=== PATIENT | female | born 1965 | race Caucasian/White ===

== ENCOUNTER → 2017-01-05 | Outpatient (CLI) | payer OTHER ==
[~2017-01-05] MED LIST: ERYTHROMYCI1
--- NOTE | 2017-01-09 09:35 | DEXA ---
AP SPINE L1 - L4 1.354 1.3 1.6 LT FEMUR TOTAL 1.168 1.3 1.7 RT FEMUR TOTAL 1.177 1.3 1.8 TOTAL BODY TOTAL OTHER DUAL FEMUR FRAX* ASSESSMENT Risk factors: History of fracture as adult. 10 year probability of fracture Major osteoporotic fracture 5.4 % Hip fracture 0.0 % COMMENTS: Normal bone densitometry of the spine and hips. The density of the spine has increased 1.3% since 03/22/2011. The density of the left hip has increased 0.8% since 03/22/2011. The density of the right hip has increased 1.9% since 03/22/2011. The increased density of the spine does not represent a significant change. The increased density of the left hip does not represent a significant change. The increased density of the right hip does not represent a significant change. FOLLOW-UP: Recommendation for the next bone density exam: 5 years. MARY ANN
== END ==
LOC: M WHC 12:56
PROVIDERS: ATTEND Family Medicine
DX: Z78.0 Asymptomatic menopausal state (principal); Z87.310 Personal history of (healed) osteoporosis fracture

== ENCOUNTER → 2017-01-29 | Outpatient (CLI) | payer OTHER ==
--- NOTE | 2017-01-31 08:06 | REPMRS ---
Patient History The patient states she has not had a clinical breast exam in over a year. Patient is postmenopausal and has history of breast cancer at age 42. Family history of breast cancer in mother at age 50 or over. Reconstructions, 2008. Reduction of the right breast, 2008. Mastectomy of the left breast, 2007. Digital Woman Screen Mammo: January 29, 2017 - Exam #: [id number] Bilateral CC and MLO view(s) were taken. Technologist: Emily Patel, Technologist Prior study comparison: October 25, 2011, right breast diagnostic unilateral mammo, performed at [facility]. FINDINGS: There are scattered fibroglandular densities. There has been no change in the appearance of the right breast parenchyma in the interval since the prior examination. No mass, architectural distortion, or microcalcific cluster has developed. No suspicious finding. ASSESSMENT: BI-RADS/ACR category 2 mammogram. Benign finding(s). Recommendation Routine screening mammogram in 1 year. This mammogram was interpreted with the aid of an FDA-approved computer-aided dectection system. Electronically Signed By: Jason Mcknight MD 01/31/17 0806
== END ==
LOC: M WHC 09:02
PROVIDERS: ATTEND Family Medicine
DX: Z12.31 Encounter for screening mammogram for malignant neoplasm of breast (principal)

== ENCOUNTER → 2017-05-17 | Outpatient (REF) | payer OTHER | LOC: M SFHCLERA 09:44 | PROVIDERS: ATTEND Physician Assistant | DX: J02.9 Acute pharyngitis, unspecified (principal) ==

== ENCOUNTER → 2018-06-24 | Outpatient (CLI) | payer OTHER | LOC: M WHC 13:58 | DX: Z12.31 Encounter for screening mammogram for malignant neoplasm of breast (principal); Z85.3 Personal history of malignant neoplasm of breast; R92.2 Inconclusive mammogram | CPT/HCPCS: 77067 ==

== ENCOUNTER → 2018-06-28 | Outpatient (CLI) | payer OTHER | LOC: M RAD 13:50 | DX: R92.2 Inconclusive mammogram (principal); R92.8 Other abnormal and inconclusive findings on diagnostic imaging of breast; Z85.3 Personal history of malignant neoplasm of breast | CPT/HCPCS: 77065 ==

== ENCOUNTER → 2018-09-12 | Outpatient (CLI) | payer OTHER ==
[~2018-09-12] MED LIST changes: +AUGM875T28 PO; +CLAR10CA3 PO; +KLOR20TA42 PO; +LEVO50TA5 PO; +LIPI20TA PO; +LOSA100T50 PO; +OMEP10CASR PO; +ONDA8TAB7 PO; +PROC10TA4 PO; +VENL37.598 PO
--- NOTE | 2018-09-13 06:58 | ECHO ---
DATE OF PROCEDURE: 09/12/2018 DATE OF : 1965 AGE: 52 GENDER: Female HEIGHT: 67 inches WEIGHT: 212 pounds BODY SURFACE AREA: 2.07 meters squared OUTPATIENT REFERRING PHYSICIAN: Dr. Jeff Yadav INDICATION: Potentially cardiotoxic chemotherapy. MEASUREMENTS: 2-D Measurements: RV: 3.0 cm LV: 4.6 cm Septum: 1.0 cm Posterior wall: 1.0 cm Aortic root: 3.4 cm LA: 3.2 cranial nerve LVEF: 60% Doppler Measurements: AV: 1.05 m/s LVOT: 0.89 m/s LVOT diameter: 2.0 cm MV - E 50 A 58 EA ratio 0.9 Early mitral deceleration time: 232 ms E prime: 7.6 A prime: 11 E/E prime ratio: 6.6 PV: 0.8 m/s Pulmonary artery acceleration time: 140 ms PASP: 20 mmHg IVC: 1.3 cm COMMENTS: Normal sinus rhythm with incomplete right bundle branch block. Technically challenging study in light of the patient's body habitus, but diagnostically useful information was still obtained. M-mode and two-dimensional echocardiography was performed with pulsed, continuous wave, color flow and tissue Doppler studies. Normal left ventricular size, wall thickness and wall motion. Normal left atrial size with Doppler evidence of an impairment of LV diastolic relaxation. Currently normal estimated mean left atrial pressure. Normal right heart chamber sizes and motion and estimated pulmonary arterial pressure. Normal appearing and functioning valvular structures. Normal aortic root size. No apparent intracardiac mass or pericardial effusion. MTDD
== END ==
LOC: M CARPUL 09:18
PROVIDERS: ATTEND Internal Medicine Hematology & Oncology
DX: I45.10 Unspecified right bundle-branch block (principal); Z79.811 Long term (current) use of aromatase inhibitors; R93.9 Diagnostic imaging inconclusive due to excess body fat of patient

== ENCOUNTER → 2018-09-17 | Outpatient (CLI) | payer OTHER ==
[2018-09-17 14:42] LABS: BASO # 0.1 10^3/uL (0.0-0.2); BASO % 1.4 % (0.0-1.0); EOS # 0.3 10^3/uL (0.0-0.50); EOS % 5.2 % (0.0-3.0); HEMATOCRIT 39.3 % (36.0-47.0); HEMOGLOBIN 12.7 g/dl (12.0-15.5); LYMPH % 41.2 % (24.0-44.0); MEAN CORPUSCULAR HEMOGLOBIN 32.2 pg (27.0-33.0); MEAN CORPUSCULAR HGB CONC 32.3 g/dl (32.0-36.5); MEAN CORPUSCULAR VOLUME 99.5 fl (80.0-96.0); MONO # 0.4 10^3/uL (0.0-0.8); MONO % 7.2 % (0.0-5.0); NEUTROPHILS # 2.2 10^3/uL (1.8-7.7); NEUTROPHILS % 44.6 % (36.0-66.0); PLATELET COUNT, AUTOMATED 241 10^3/uL (150-450); RED BLOOD COUNT 3.95 10^6/uL (4.00-5.40); WHITE BLOOD COUNT 4.8 10^3/uL (4.0-10.0)
[2018-09-17 14:45] LABS: BLOOD UREA NITROGEN 15 MG/DL (7-18); CALCIUM LEVEL 8.6 MG/DL (8.5-10.1); CARBON DIOXIDE LEVEL 29 MEQ/L (21-32); CHLORIDE LEVEL 109 MEQ/L (98-107); CREATININE FOR GFR 0.79 MG/DL (0.55-1.30); GLOMERULAR FILTRATION RATE > 60.0 (>51); GLUCOSE, FASTING 104 MG/DL (70-100); POTASSIUM SERUM 4.4 MEQ/L (3.5-5.1); SODIUM LEVEL 143 MEQ/L (136-145)
[2018-09-17 14:57] LABS: INR 0.92; PROTHROMBIN TIME 12.5 SECONDS (12.1-14.4)
--- NOTE | 2018-09-18 03:57 | REP ---
Clinical: Preoperative assessment. Technique: PA and lateral. Comparison: None. Findings: Evaluation is limited by poor inspiratory effort. Mediastinum and cardiac silhouette are within normal limits. Airway is patent and midline. Lung andersen are relatively clear and without focal consolidation, effusion, or pneumothorax. Foreign body overlying the right breast consistent with prior reconstructive surgery. Impression: 1. No acute mediastinal or pleuroparenchymal process appreciated. Electronically Signed by Jayson Mejia MD 09/18/2018 03:49 A
== END ==
LOC: M SMT 11:13
PROVIDERS: ATTEND Thoracic Surgery (Cardiothoracic Vascular Surgery)
DX: C50.912 Malignant neoplasm of unspecified site of left female breast (principal); Z01.818 Encounter for other preprocedural examination

== ENCOUNTER 2018-09-18 11:08 | Day surgery (SDC) | payer OTHER ==
[~2018-09-18] VITALS: Ht 170.2 cm; Wt 100.2 kg
[~2018-09-18 11:08] MED LIST changes: +BUPIVACAINE LIPOSOME/PF 1.3% 20ML VIAL (13.3MG/ML)(EXPAREL)(C9290 PER1MG) As Ordered ONE; +HEPARIN SOD (PORCINE) 5000 UNITS/ML VIAL As Ordered ONE; -KLOR20TA42 PO; +LIDOCAINE 1% MDV 20ML VIAL As Ordered ONE; -OMEP10CASR PO; -ONDA8TAB7 PO; -PROC10TA4 PO
[2018-09-18] MEDS ORDERED: LR 1,000 ML IV SCH (11:15)
[2018-09-18] MEDS ORDERED: MUPIROCIN 2% OINT 22 GM TUBE TOP ONE (11:30)
[2018-09-18] MEDS ORDERED: ONDANSETRON 4MG/2ML VIAL (J2405) As Ordered ONE (13:35)
[2018-09-18] MEDS ORDERED: fentaNYL 100 MCG/2 ML INJECTION (J3010) As Ordered ONE (13:35)
[2018-09-18] MEDS ORDERED: KETAMINE HCL 200 MG/20 ML VIAL As Ordered ONE (13:35)
[2018-09-18] MEDS ORDERED: MIDAZOLAM INJ 2 MG/2 ML VIAL (J2250) As Ordered ONE (13:35)
[2018-09-18] MEDS ORDERED: PROPOFOL 200 MG/20 ML VIAL As Ordered ONE (13:35)
--- NOTE | 2018-09-18 13:47 | REP ---
FLUOROSCOPIC GUIDANCE FOR [id number] PLACEMENT: 09/18/2018. Clinical history: Breast carcinoma. Findings: Two images from C-arm fluoroscopy provided to Dr. Rivera of the thoracic surgery division for left-sided subclavian Vybasd-K-Uhvv insertion. These images show the subclavian catheter with tip in SVC and its port in the left upper chest. Fluoroscopy time: 17 seconds. Electronically Signed by Jacek Rehman MD 09/18/2018 01:38 P
[2018-09-18 14:35] VITALS: BP 144/78
--- NOTE | 2018-09-18 19:32 | REP ---
AP PORTABLE SEMI-ERECT CHEST: 09/18/2018. Clinical history: Postop Vvgcfi-T-Shtn insertion. Comparison: Chest x-ray and 09/17/2018. Findings: There is a new left subclavian Nsxypa-T-Ugsr catheter with tip in the SVC above the right atrium. No evidence of pneumothorax or effusion. Epicardial fat pad or some subsegmental atelectatic change in the left CP angle noted. The right lung is clear. There is a tissue expanded overlying the right chest wall. No other finding. Impression: 1. Status post Rjkebd-R-Vbqm placement via the left subclavian route with tip in the SVC. No pneumothorax or definite infiltrate. Electronically Signed by Jacek Rehman MD 09/18/2018 09:32 P
--- NOTE | 2018-09-19 09:12 | RO ---
DATE OF PROCEDURE: 09/18/2018 PREPROCEDURE DIAGNOSIS: Metastatic breast cancer. POSTPROCEDURE DIAGNOSIS: Metastatic breast cancer. PROCEDURE: Insertion of a left subclavian vein PowerPort for chemotherapy with fluoroscopic control. SURGEON: Stephane Rivera MD LINOTYPE MACHINIST APPRENTICE: ANESTHESIA: FINDINGS: All contours were smooth at the end of the procedure. The catheter was placed at the junction of the superior vena cava (SVC) in the right atrium. All positions were confirmed by fluoroscopic control. DESCRIPTION OF PROCEDURE: Under satisfactory monitored anesthesia care (MAC) anesthesia, patient was prepped and draped in usual sterile fashion. The subclavian vein was found on the first pass on the left side. A wire was placed and its position confirmed with fluoroscopy. An incision approximately 2 cm below the subclavian fossa was made for the port. It was carried down into the subcutaneous tissue and a subcutaneous pocket was created by use of electrocautery and blunt dissection. Wire tract was incised and dilated. A Peel-Away introducer was placed and the catheter was placed low numbers down into the right atrium. A tunnel was created between the wire site and the port site. The catheter was pulled through into the port site and then positioned by fluoroscopic control at the junction of the right atrium of the superior vena cava. The catheter was cut to appropriate size, collar placed and Infusaport connected to the catheter. The port was secured to the chest wall with two #2-0 silk sutures. Final x-rays showed the port to be in good place with all contours smooth. The port was flushed with heparinized saline and then a final flush of heparin 100 units/mL of heparin. The subcutaneous tissue was closed with running #3-0 Vicryl suture and the skin was closed with running #4-0 Monocryl subcuticular suture. The patient tolerated procedure well and left the operating room in satisfactory condition for the recovery room.
[2018-09-20] MEDS ORDERED: ONDA8TAB7 PO (13:41)
[2018-09-20] MEDS ORDERED: PROC10TA4 PO (13:41)
[2018-09-23] MEDS ORDERED: OMEP10CASR PO (08:28)
[2018-09-23] MEDS ORDERED: KLOR20TA42 PO (10:26)
== END 2018-09-18 14:43 | disposition home or self-care (01) ==
LOC: M SDC 11:08
PROVIDERS: ATTEND Thoracic Surgery (Cardiothoracic Vascular Surgery)
DX: C50.912 Malignant neoplasm of unspecified site of left female breast (principal); C50.911 Malignant neoplasm of unspecified site of right female breast; I10 Essential (primary) hypertension; E03.9 Hypothyroidism, unspecified; E78.00 Pure hypercholesterolemia, unspecified; F41.9 Anxiety disorder, unspecified; F32.9 Major depressive disorder, single episode, unspecified; Z88.5 Allergy status to narcotic agent; Z88.6 Allergy status to analgesic agent; Z88.8 Allergy status to other drugs, medicaments and biological substances; Z79.899 Other long term (current) drug therapy; Z90.710 Acquired absence of both cervix and uterus; Z87.891 Personal history of nicotine dependence
CPT/HCPCS: 36561; 71045; 76000; C1788; C9290; J0690; J2250; J2405; J3010

== ENCOUNTER → 2018-09-26 | Outpatient (CLI) | payer OTHER ==
[~2018-09-26] MED LIST changes: -BUPIVACAINE LIPOSOME/PF 1.3% 20ML VIAL (13.3MG/ML)(EXPAREL)(C9290 PER1MG) As Ordered ONE; -HEPARIN SOD (PORCINE) 5000 UNITS/ML VIAL As Ordered ONE; +KLOR20TA42 PO; -LIDOCAINE 1% MDV 20ML VIAL As Ordered ONE; +OMEP10CASR PO; +ONDA8TAB7 PO; +PROC10TA4 PO; +VITATAB11 PO
--- NOTE | 2018-09-26 08:38 | REP ---
Chest x-ray: Two views. History: Malignant neoplasm of the breast. Comparison study: September 18, 2018. Findings: An Zyrvpx-N-Ddng catheter is noted in place via the left side. There is a tissue auto body mechanic device visible in the right breast. There is plate-like atelectasis in the left base which has improved from the recent prior chest x-ray. Lung andersen are otherwise clear. The pleural angles are sharp. Heart is not enlarged. Impression: Improving atelectatic changes left base. Wxwiov-V-Vnuo catheter and right breast tissue auto body mechanic noted. Otherwise no acute disease. Electronically Signed by Khari Mcknight MD 09/26/2018 08:31 A
== END ==
LOC: M SMT 08:06
PROVIDERS: ATTEND Thoracic Surgery (Cardiothoracic Vascular Surgery)
DX: C50.912 Malignant neoplasm of unspecified site of left female breast (principal); J98.11 Atelectasis

== ENCOUNTER → 2018-12-12 | Outpatient (CLI) | payer OTHER ==
[~2018-12-12] MED LIST changes: +ATOR40TA75 PO; +KEFL500C17 PO; +KP BTAB PO; +LOSA100T5 PO; +POTA1TAB14 PO
--- NOTE | 2018-12-12 18:47 | ECHO ---
DATE OF PROCEDURE: 12/12/2018 REFERRING PROVIDER: Ashley Aly INDICATION: Right breast cancer. Height 168 cm, weight 91 kg. DIMENSIONS: IVS: 1.0 LV: 4.9 LVPW: 1.1 LA: 3.3 Aorta: 3.2 IVC: 1.3 Mitral E wave velocity: 74 A wave: 85 E prime septal: 6.9 E prime lateral: 8.1 FINDINGS: The study is of fair technical quality with difficult visualization. Left ventricle is normal size and has normal systolic function. Based on limited views, I estimate ejection fraction (EF) around 60%, computer-calculated left ventricular ejection fraction (LVEF) was 55%. Right ventricle appears normal size and systolic function as well. Both atria appear normal. All four cardiac valves were reasonably well seen and appear normal. No pericardial effusion is noted. Inferior vena cava is normal size and appropriately collapses with respiration indicative of normal central venous pressure. Aortic root, aortic arch and abdominal aorta all appear normal. Doppler interrogation reveals normal function of aortic valve without stenosis or insufficiency. Same applies for mitral, tricuspid, and pulmonic valves. Mitral inflow pattern and tissue Doppler imaging of mitral annulus revealed grade 1 diastolic dysfunction. CONCLUSIONS: 1. Study is of fair technical quality. 2. Normal left ventricular (LV) size and systolic function, grade 1 diastolic dysfunction. 3. No significant valvular disease. 4. Normal central venous pressure. 5. Unable to estimate pulmonary artery pressure. COMMENT: Subacute bacterial endocarditis (SBE) prophylaxis is not recommended. MTDD
== END ==
LOC: M CARPUL 08:27
PROVIDERS: ATTEND Nurse Practitioner Family
DX: C50.911 Malignant neoplasm of unspecified site of right female breast (principal)

== ENCOUNTER → 2019-03-11 | Outpatient (CLI) | payer OTHER ==
--- NOTE | 2019-03-12 08:44 | REP ---
REASON: Assessment prior to chemotherapy. After the intravenous administration of 23.7 mCi of technetium-99m UltraTag a MUGA scan. The ejection fraction is calculated at 55.8%. No abnormal left ventricular wall motion was identified. IMPRESSION: Normal exam. Electronically Signed by Nael Hansen DO 03/12/2019 09:47 A
== END ==
LOC: M RAD 12:55
PROVIDERS: ATTEND Internal Medicine
DX: C50.411 Malignant neoplasm of upper-outer quadrant of right female breast (principal)

== ENCOUNTER → 2019-06-10 | Outpatient (CLI) | payer OTHER ==
--- NOTE | 2019-06-10 10:39 | REP ---
Two-view chest: 06/10/2019. Indication: Cough. Comparison: 09/26/2018. Findings: The lungs are clear. There is no pleural effusion or pneumothorax. Left-sided Port-A-Cath is noted and similarly positioned with the tip at the cavoatrial junction. The cardiac silhouette is not significantly enlarged. Impression: No acute cardiopulmonary process. Electronically Signed by Adi Jara DO 06/10/2019 10:31 A
== END ==
LOC: M LRY 10:05
PROVIDERS: ATTEND Physician Assistant
DX: R05 Cough (principal)

== ENCOUNTER → 2019-07-22 | Outpatient (CLI) | payer OTHER ==
--- NOTE | 2019-07-22 14:13 | ECHO ---
DATE OF PROCEDURE: 07/22/2019 REFERRING PHYSICIAN: Dr. Jimenez INDICATION: Chemotherapy. HEIGHT: 170 cm. WEIGHT: 87 kg. DIMENSIONS: IVS 1.4 LV 4.1 LVPW 1.2 LA 2.7 Aorta 3.5 IVC 0.9 Mitral E wave velocity 40, A wave 73 E prime septal 4.7 E prime lateral 7.6 FINDINGS: The study is of fair technical quality. The patient is in sinus rhythm. Left ventricle is normal size and systolic function. Mild left ventricular hypertrophy is noted. Calculated LVEF was 62%. Right ventricle appears normal. Both atria appear normal. Aortic, mitral, tricuspid and pulmonic valves were all reasonably well seen and appear normal. No pericardial effusion is noted. Inferior vena cava is relatively small indicative of normal central venous pressure. Aortic root is normal. Aortic arch also appears normal. Abdominal aorta was not well seen. Doppler interrogation reveals no significant valvular disease. All four cardiac valves are functionally competent. Mitral inflow pattern and tissue Doppler imaging of mitral annulus reveal grade 1 diastolic dysfunction. CONCLUSION: 1. Study is of fair technical quality. 2. Normal LV size with mild LVH and normal LV systolic function. Calculated LVEF 62%. 3. No significant valvular disease. 4. Likely normal central venous pressure. Unable to calculate pulmonary artery pressure. COMMENTS: SBE prophylaxis is not recommended. MTDD
== END ==
LOC: M CARPUL 08:25
PROVIDERS: ATTEND Internal Medicine Hematology & Oncology
DX: C50.911 Malignant neoplasm of unspecified site of right female breast (principal); Z92.21 Personal history of antineoplastic chemotherapy

== ENCOUNTER → 2020-05-13 | Outpatient (CLI) | payer OTHER ==
[~2020-05-13] MED LIST changes: +D31000TA2 PO; +ONDA8TAB10 PO; -ONDA8TAB7 PO
--- NOTE | 2020-05-14 08:19 | ECHO ---
DATE OF PROCEDURE: 05/13/2020 Age: 54 Gender: Female Height: 67 inches Weight: 183 pounds REFERRING PHYSICIAN: Emre Guan MD INDICATION: Chemotherapy drugs that may affect the heart. MEASUREMENTS: 2D Measurements: Aortic root 3.5 cm Left atrium 2.3 cm Intraventricular septum 1.06 cm Posterior wall 1.09 cm Left ventricle diastole 3.4 cm Inferior vena cava 0.9 cm (more than 50% respiratory variation) Doppler Measurements: No aortic stenosis No aortic regurgitation Aortic valve velocity 91.1 cm/s LVOT velocity 64.7 cm/s No mitral stenosis No mitral regurgitation Mitral E velocity 53.8 cm/s Mitral A velocity 70.1 cm/s Mitral deceleration time 137 msec No tricuspid regurgitation No pulmonic regurgitation Pulmonary artery systolic pressure 21 mmHg MITRAL ANNULAR TISSUE DOPPLER E prime septal 10.1 cm/s, E prime lateral 12.1 cm/s DESCRIPTION: Rhythm was sinus. Image quality was fair. No pericardial effusion. This was a 2D, M-mode, color flow Doppler, and pulsed wave Doppler examination including mitral annular tissue Doppler. CONCLUSIONS: 1. Normal echocardiogram Doppler. 2. Normal left ventricle internal dimensions and wall thickness. Normal regional left ventricular (LV) wall motion and wall thickening. Normal left ventricular (LV) systolic function. Left ventricular ejection fraction (LVEF) 70% by visual estimate. Normal left ventricular (LV) diastolic function at observed heart rate. 3. No pericardial effusion. MTDD
== END ==
LOC: M CARPUL 09:18
PROVIDERS: ATTEND Internal Medicine Hematology & Oncology
DX: Z51.81 Encounter for therapeutic drug level monitoring (principal); Z79.899 Other long term (current) drug therapy; C50.911 Malignant neoplasm of unspecified site of right female breast

== ENCOUNTER → 2020-11-11 | Outpatient (CLI) | payer OTHER ==
--- NOTE | 2020-11-12 10:18 | ECHO ---
DATE OF PROCEDURE: 11/11/2020 Age: 54 Gender: Female Height: 170 cm Weight: 88 kg REFERRING PHYSICIAN: Emre Guan MD. INDICATION: Chemotherapy. MEASUREMENTS: IVS 1.90 cm LV 4.8 cm LVPW 1.0 cm LA 2.8 cm Aorta 3.3 cm IVC 1.3 cm Mitral E wave velocity 54 cm/s Mitral A wave 67 cm/s E prime septal 7.8 cm/s E prime lateral 8.6 cm/s FINDINGS: This study is of fair technical quality. Underlying sinus rhythm. Left ventricle is normal size and has normal systolic function. I estimate EF approximately 70%. No segmental wall motion abnormalities are appreciated. Right ventricle was relatively poorly seen, but appears grossly normal. Both atria appear normal. Aortic valve is tricuspid. It has normal mobility. Also mitral, tricuspid, and pulmonic valves appear normal based on fairly acceptable views. No pericardial effusion is noted. Inferior vena cava was not well seen. Aortic root, aortic arch, and abdominal aorta were not well seen. Doppler interrogation of the aortic valve revealed no significant stenosis or insufficiency. The same applies for the remaining three valves. Mitral inflow pattern and tissue Doppler imaging of the mitral annulus revealed grade 1 diastolic dysfunction. CONCLUSIONS: 1. Study is of fair technical quality, underlying sinus rhythm. 2. Normal LV size and systolic function, grade 1 diastolic dysfunction. 3. No significant valvular disease. 4. Normal central venous pressure, but unable to reliably estimate pulmonary artery pressure. MTDD
== END ==
LOC: M CARPUL 09:36
PROVIDERS: ATTEND Internal Medicine Hematology & Oncology
DX: C50.919 Malignant neoplasm of unspecified site of unspecified female breast (principal)

== ENCOUNTER → 2021-08-05 | Outpatient (CLI) | payer OTHER ==
[~2021-08-05] MED LIST changes: -KLOR20TA42 PO; +LOSA100T45 PO; -LOSA100T50 PO; +ONDA-84 PO; -ONDA8TAB10 PO; +POTA-141 PO; -PROC10TA4 PO; +PROC10TA5 PO
== END ==
LOC: M CARPUL 14:30
PROVIDERS: ATTEND Internal Medicine Hematology & Oncology
DX: C50.911 Malignant neoplasm of unspecified site of right female breast (principal)

== ENCOUNTER → 2022-01-09 | Outpatient (CLI) | payer OTHER ==
[~2022-01-09] MED LIST changes: -D31000TA2 PO; +VITA100093 PO
== END ==
LOC: M LABSMTC 10:18
PROVIDERS: ATTEND Anesthesiology
DX: Z01.812 Encounter for preprocedural laboratory examination (principal); Z20.822 Contact with and (suspected) exposure to COVID-19

== ENCOUNTER 2022-01-12 08:02 | Day surgery (SDC) | payer OTHER ==
[~2022-01-12] VITALS: Ht 170.2 cm; Wt 85.3 kg
[~2022-01-12 08:02] MED LIST changes: +LIDOCAINE 2% JELLY 5ML TUBE As Ordered ONE; +NS 1,000 ML IV ONE; +propofoL 200 MG/20 ML VIAL As Ordered ONE
[2022-01-12] MEDS ORDERED: propofoL 200 MG/20 ML VIAL As Ordered ONE (09:25)
[2022-01-12] MEDS ORDERED: LIDOCAINE 2% 100MG/5ML SDV (FOR ANES.) As Ordered ONE (09:25)
[2022-01-12 09:50] VITALS: BP 99/65
== END 2022-01-12 10:21 | disposition home or self-care (01) ==
LOC: M OPP 08:02
PROVIDERS: ATTEND Internal Medicine Gastroenterology
DX: Z12.11 Encounter for screening for malignant neoplasm of colon (principal); Z80.0 Family history of malignant neoplasm of digestive organs; Z83.71 Family history of colonic polyps; Z80.1 Family history of malignant neoplasm of trachea, bronchus and lung; Z80.3 Family history of malignant neoplasm of breast

== ENCOUNTER → 2023-08-17 | Outpatient (CLI) | payer OTHER ==
[~2023-08-17] MED LIST changes: -LIDOCAINE 2% JELLY 5ML TUBE As Ordered ONE; -LOSA100T45 PO; +LOSA100T46 PO; -NS 1,000 ML IV ONE; +POTA-298 PO; -POTA1TAB14 PO; -propofoL 200 MG/20 ML VIAL As Ordered ONE
[2023-08-17 10:33] LABS: INR 1.12
[2023-08-17 10:44] LABS: IMMUNOGLOBULIN A 443.3 MG/DL (40-350)
[2023-08-17 10:45] LABS: ALBUMIN 4.1 G/DL (3.2-5.2); ALKALINE PHOSPHATASE 112 U/L (46-116); ALT/SGPT 65 U/L (7.0-40); AST/SGOT 81 U/L (<34); BILIRUBIN,DIRECT 0.2 MG/DL (<0.4); BILIRUBIN,TOTAL 0.6 MG/DL (0.3-1.2); IRON (FE) 72 UG/DL (50-170); PERCENT SATURATION 21.3 % (13.2-45.0); TOTAL IRON BINDING CAPACITY 338 UG/DL (250-425); TOTAL PROTEIN 7.6 G/DL (5.7-8.2)
[2023-08-17 11:25] LABS: HEPATITIS C VIRUS ABY INDEX 0.02 INDEX (<0.8)
[2023-08-17 11:26] LABS: HEPATITIS B CORE ANTIBODY IGM NEGATIVE (NEGATIVE)
== END ==
LOC: M RAD 08:42
PROVIDERS: ATTEND Internal Medicine Gastroenterology
DX: R74.01 Elevation of levels of liver transaminase levels (principal)

== ENCOUNTER → 2023-09-04 | Outpatient (CLI) | payer OTHER ==
[~2023-09-04] MED LIST changes: +GASTROGRAFIN SOLUTION 30ML As Ordered ONE; +ISOVUE-370 76% 100ML VIAL As Ordered ONE
== END ==
LOC: M RAD 15:28
PROVIDERS: ATTEND Internal Medicine Gastroenterology
DX: K57.30 Diverticulosis of large intestine without perforation or abscess without bleeding (principal); K40.90 Unilateral inguinal hernia, without obstruction or gangrene, not specified as recurrent
CPT/HCPCS: 74177; Q9963; Q9967

== ENCOUNTER → 2023-10-04 | Outpatient (CLI) | payer OTHER ==
[~2023-10-04] MED LIST changes: -GASTROGRAFIN SOLUTION 30ML As Ordered ONE; -ISOVUE-370 76% 100ML VIAL As Ordered ONE
[2023-10-04 19:04] LABS: ALBUMIN 3.7 G/DL (3.2-5.2); ALKALINE PHOSPHATASE 85 U/L (46-116); ALT/SGPT 49 U/L (7.0-40); AST/SGOT 39 U/L (<34); BILIRUBIN,DIRECT < 0.1 MG/DL (<0.4); BILIRUBIN,TOTAL 0.3 MG/DL (0.3-1.2); TOTAL PROTEIN 6.7 G/DL (5.7-8.2)
== END ==
LOC: M LAB 16:27
PROVIDERS: ATTEND Internal Medicine Gastroenterology
DX: R74.01 Elevation of levels of liver transaminase levels (principal)